=== PATIENT | male | born 1980 | race African-American/Black ===

== ENCOUNTER 2016-08-17 11:37 | Emergency (ER) | payer OTHER ==
[~2016-08-17] VITALS: Ht 180.3 cm; Wt 81.8 kg
[~2016-08-17 11:37] MED LIST: DOXYCYCLINE HY100 M3 PO
[2016-08-17 13:56] LABS: ADD MIUA? YES; BILIRUBIN NEGATIVE; BLOOD NEGATIVE; GLUCOSE (STRIP) NEGATIVE; KETONES NEGATIVE; LEUKOCYTES SMALL; NITRITE NEGATIVE; PH, URINE 7.5 (5-8); PROTEIN (STRIP) 30; SPECIFIC GRAVITY 1.031 (1.000-1.030); UROBILINOGEN 0.2 MG/DL (0.2-1.0)
[2016-08-17 13:57] LABS: COLOR DK YELLOW ((YELLOW))
[2016-08-17 14:23] VITALS: BP 164/114
[2016-08-17 14:44] LABS: BACTERIA NONE SEEN /HPF; CASTS NONE SEEN /LPF; CRYSTALS NONE SEEN; EPITHELIAL CELLS RARE /HPF; MUCUS NONE SEEN /LPF; RED BLOOD CELLS NONE SEEN /HPF (0-5); UCUL ADDED? NO; WHITE BLOOD CELLS 0-5 /HPF (0-5)
[2016-08-19 12:44] LABS: CHLAMYDIA TRACHOMATIS NEGATIVE; NEISSERIA GONORRHOEAE NEGATIVE
== END 2016-08-17 14:24 | disposition home or self-care (01) ==
LOC: EME 11:37 → RME 11:37
PROVIDERS: Physician Assistant
DX: R36.9 Urethral discharge, unspecified (principal); I10 Essential (primary) hypertension; Z91.14 Patient's other noncompliance with medication regimen; F17.200 Nicotine dependence, unspecified, uncomplicated
CPT/HCPCS: 81003; 87491; 87591; 99281; 99284; J0696

== ENCOUNTER 2016-08-26 22:12 | Inpatient (IN) | payer OTHER ==
[~2016-08-26] VITALS: Ht 180.3 cm; Wt 84.3 kg
[2016-08-26 22:29] LABS: EOSINOPHIL (%) 1.9 % (0-5); EOSINOPHIL COUNT 0.1 K/uL (0-0.3); HEMATOCRIT 45.2 % (38.0-50.0); IMMATURE GRANULOCYTE (%) 0.2 % (0.0-0.7); IMMATURE GRANULOCYTE COUNT 0.1 K/uL; MCH 27.9 PG (29.0-34.0); MCHC 33.6 G/DL (30.0-36.0); MCV 82.9 FL (86-99); MEAN PLAT.VOLUME 10.5 uM^3 (9.0-12.4); MONOCYTE (%) 8.4 % (3-12); MONOCYTE COUNT 0.5 K/uL (0-0.8); NEUTROPHIL (%) 41.9 % (45-76); NEUTROPHIL COUNT 2.6 K/uL (1.8-6.4); PLATELET COUNT 193 K/uL (156-360); RBC DIS.WIDTH-SD 36.1 % (39-53); RED BLOOD COUNT 5.45 M/uL (4.00-5.50); WHITE BLOOD COUNT 6.3 K/uL (4.1-10.2)
[2016-08-26 22:48] LABS: AMYLASE 121 IU/L (1-118); CHLORIDE 106 mEq/L (99-109); SODIUM 142 mEq/L (136-147)
[2016-08-26 22:50] LABS: GLUCOSE 133 mg/dL (70-99)
[2016-08-26 22:51] LABS: ANION GAP 19 MEQ/L (2-14)
[2016-08-26 22:53] LABS: GFR ESTIMATE (CALCULATED) > 59 mL/min/; SERUM ETHYL ALCOHOL < 10 mg/dL
[2016-08-26 22:54] LABS: UREA NITROGEN (BUN) 22 mg/dL (9-23)
[2016-08-26 22:56] LABS: LIPASE 17 U/L (1.0-51.0)
[2016-08-27] VITALS (26 sets, daily range): BP systolic 121–205; BP diastolic 78–133
[2016-08-27 00:37] LABS: TOTAL BILIRUBIN 0.6 mg/dL (0.0-1.0)
[2016-08-27 00:38] LABS: ALKALINE PHOSPHATASE 78 IU/L (3-129)
[2016-08-27 00:41] LABS: DIRECT BILIRUBIN 0.2 mg/dL (0.0-0.3)
[2016-08-27 01:50] LABS: HEMATOCRIT 45.1 % (38.0-50.0); MCV 83.2 FL (86-99)
[2016-08-27 02:22] LABS: CHLORIDE 112 mEq/L (99-109); POTASSIUM 5.8 mEq/L (3.7-5.4); SODIUM 143 mEq/L (136-147)
[2016-08-27 02:25] LABS: ANION GAP 15 MEQ/L (2-14)
[2016-08-27 02:28] LABS: GFR ESTIMATE (CALCULATED) > 59 mL/min/
[2016-08-27 02:29] LABS: UREA NITROGEN (BUN) 21 mg/dL (9-23)
[2016-08-27 02:30] LABS: GLUCOSE 86 mg/dL (70-99)
[2016-08-27 04:00] LABS: BASE EXCESS -3.4 mEq/L (-3 to +3); BICARBONATE 21.4 mEq/L (22-26); CARBOXY HGB 2.7 % (0-5); COMMENTS - BLOOD GASES C+; DEVICE 840; FI02 50 %; MECHANICAL RATE 12 resp/min; METHEMOGLOBIN 1.1 % (0-1.5); MODE AC; PCO2 37 mm Hg (35-45); PEEP 5 CM/H20; PO2 229 mm Hg (80-100); SITE LR; TIDAL VOLUME 600 ML; TOTAL RESP RATE 12 resp/min; pH 7.37 (7.35-7.45)
[2016-08-27 04:06] LABS: METH RESISTANT S AUREUS PCR NEGATIVE (NEGATIVE)
[2016-08-27 04:16] LABS: PROBE CHECK PASS; SPECIMEN PROCESSING CONTROL PASS
[2016-08-27 07:08] LABS: ADD MIUA? YES; BILIRUBIN NEGATIVE; BLOOD LARGE; COLOR YELLOW ((YELLOW)); GLUCOSE (STRIP) NEGATIVE; KETONES NEGATIVE; LEUKOCYTES NEGATIVE; NITRITE NEGATIVE; PROTEIN (STRIP) NEGATIVE; SPECIFIC GRAVITY 1.013 (1.000-1.030); UROBILINOGEN 0.2 MG/DL (0.2-1.0)
[2016-08-27 07:12] LABS: AMPHETAMINE NEGATIVE (500 ng/mL); BARBITURATES NEGATIVE (200 ng/mL); BENZODIAZEPINES NEGATIVE (150 ng/mL); COCAINE PRESUMPTIVE POSITIVE (150 ng/mL); INTERNAL CONTROLS VALID? YES; METHADONE NEGATIVE (200 ng/mL); METHAMPHETAMINE NEGATIVE (500 ng/mL); OPIATES (MORPHINE) PRESUMPTIVE POSITIVE (100 ng/mL); OXYCODONE NEGATIVE (100 ng/mL); PHENCYCLIDINE NEGATIVE (25 ng/mL); PROPOXYPHENE NEGATIVE (300 ng/mL); THC CANNABINOIDS NEGATIVE (50 ng/mL); TRICYCLIC ANTIDEPRESSANTS NEGATIVE (300 ng/mL)
[2016-08-27 07:13] LABS: ADD MEDTOX COMMENT Y
[2016-08-27 07:16] LABS: BACTERIA NONE SEEN /HPF; EPITHELIAL CELLS NONE SEEN /HPF; MUCUS TRACE /LPF; RED BLOOD CELLS TNTC /HPF (0-5); UCUL ADDED? NO; WHITE BLOOD CELLS 0-5 /HPF (0-5)
[2016-08-27 07:32] LABS: OPIATES QUANTITATIVE VALUE 0 NG/ML
[2016-08-27 14:18] LABS: EOSINOPHIL (%) 0 % (0-5); HEMATOCRIT 45.7 % (38.0-50.0); IMMATURE GRANULOCYTE (%) 0.2 % (0.0-0.7); LYMPHOCYTE COUNT 0.8 K/uL (1.0-2.8); MCH 27.6 PG (29.0-34.0); MCHC 33.3 G/DL (30.0-36.0); MCV 83.1 FL (86-99); MEAN PLAT.VOLUME 11.4 uM^3 (9.0-12.4); MONOCYTE (%) 7.2 % (3-12); MONOCYTE COUNT 0.9 K/uL (0-0.8); NEUTROPHIL (%) 85.8 % (45-76); NEUTROPHIL COUNT 10.2 K/uL (1.8-6.4); RBC DIS.WIDTH-CV 13.2 % (11.8-14.6); RBC DIS.WIDTH-SD 39.7 % (39-53)
[2016-08-27 14:24] LABS: PLATELET COUNT 125 K/uL (156-360); WHITE BLOOD COUNT 11.9 K/uL (4.1-10.2)
[2016-08-27 14:57] LABS: PLAT.SUFFICIENCY DECREASED; USER ID TLW
[2016-08-27 15:15] LABS: ANION GAP 9 MEQ/L (2-14); CHLORIDE 107 MEQ/L (99-109); GFR ESTIMATE (CALCULATED) > 59 mL/min/; MAGNESIUM 1.7 mg/dl (1.3-2.7); SAMPLE HEMOLYSIS CHECK 0; SAMPLE ICTERIC CHECK 0; SAMPLE LIPEMIA CHECK 0; SODIUM 138 MEQ/L (136-147); UREA NITROGEN (BUN) 18 mg/dL (9-23)
[2016-08-27 15:17] LABS: GLUCOSE 110 mg/dL (70-99); POTASSIUM 4.3 MEQ/L (3.7-5.4)
[2016-08-27 15:31] LABS: BASE EXCESS -1.4 mEq/L (-3 to +3); BICARBONATE 24.8 mEq/L (22-26); CARBOXY HGB 2.7 % (0-5); COMMENTS - BLOOD GASES A+C+; DEVICE 840; FI02 30 %; METHEMOGLOBIN 1.4 % (0-1.5); MODE SPONT (TC); PCO2 46 mm Hg (35-45); PO2 108 mm Hg (80-100); SITE LR; TOTAL RESP RATE 18 resp/min; pH 7.34 (7.35-7.45)
[2016-08-27 15:32] LABS: PEEP 5 CM/H20
[2016-08-27] MEDS ORDERED: PRINIVIL20 MG PO (16:01)
[2016-08-27] MEDS ORDERED: HYDROCHLOROTHIA25 MG PO (16:02)
[2016-08-27] MEDS ORDERED: LO-DOSE ASPIRIN81 M2 PO (16:03)
[2016-08-28] VITALS (24 sets, daily range): BP systolic 131–172; BP diastolic 67–107
[2016-08-28 06:12] LABS: ANION GAP 9 MEQ/L (2-14); CHLORIDE 105 MEQ/L (99-109); GFR ESTIMATE (CALCULATED) 55 mL/min/; GLUCOSE 91 mg/dL (70-99); MAGNESIUM 1.9 mg/dl (1.3-2.7); POTASSIUM 4.3 MEQ/L (3.7-5.4); SAMPLE HEMOLYSIS CHECK 0; SAMPLE ICTERIC CHECK 0; SAMPLE LIPEMIA CHECK 0; SODIUM 139 MEQ/L (136-147); UREA NITROGEN (BUN) 16 mg/dL (9-23)
[2016-08-28 06:42] LABS: EOSINOPHIL (%) 0.2 % (0-5); HEMATOCRIT 39.3 % (38.0-50.0); IMMATURE GRANULOCYTE (%) 0.2 % (0.0-0.7); LYMPHOCYTE COUNT 0.9 K/uL (1.0-2.8); MCH 27.4 PG (29.0-34.0); MCHC 32.6 G/DL (30.0-36.0); MEAN PLAT.VOLUME 10.8 uM^3 (9.0-12.4); MONOCYTE COUNT 0.9 K/uL (0-0.8); NEUTROPHIL COUNT 9.6 K/uL (1.8-6.4); PLATELET COUNT 108 K/uL (156-360); RBC DIS.WIDTH-CV 13.1 % (11.8-14.6); RBC DIS.WIDTH-SD 39.3 % (39-53); RED BLOOD COUNT 4.68 M/uL (4.00-5.50); WHITE BLOOD COUNT 11.4 K/uL (4.1-10.2)
[2016-08-28 15:04] LABS: ADD MIUA? YES; BILIRUBIN NEGATIVE; BLOOD LARGE; COLOR YELLOW ((YELLOW)); GLUCOSE (STRIP) NEGATIVE; KETONES 20; LEUKOCYTES NEGATIVE; NITRITE NEGATIVE; PROTEIN (STRIP) 30; SPECIFIC GRAVITY 1.017 (1.000-1.030); UROBILINOGEN 0.2 MG/DL (0.2-1.0)
[2016-08-28 15:17] LABS: BACTERIA RARE /HPF; EPITHELIAL CELLS NONE SEEN /HPF; MUCUS TRACE /LPF; RED BLOOD CELLS TNTC /HPF (0-5); UCUL ADDED? NO; WHITE BLOOD CELLS 0-5 /HPF (0-5)
[2016-08-28 16:50] LABS: UR CREATININE CONCENTRATION 183.1 MG/DL
[2016-08-29] VITALS (12 sets, daily range): BP systolic 143–193; BP diastolic 70–112
[2016-08-29 06:38] LABS: EOSINOPHIL (%) 0.3 % (0-5); HEMATOCRIT 38.8 % (38.0-50.0); IMMATURE GRANULOCYTE (%) 0.3 % (0.0-0.7); LYMPHOCYTE COUNT 1.2 K/uL (1.0-2.8); MCH 28.3 PG (29.0-34.0); MCHC 33.2 G/DL (30.0-36.0); MCV 85.1 FL (86-99); MEAN PLAT.VOLUME 10.9 uM^3 (9.0-12.4); MONOCYTE COUNT 1.3 K/uL (0-0.8); NEUTROPHIL (%) 78.3 % (45-76); NEUTROPHIL COUNT 9.2 K/uL (1.8-6.4); PLATELET COUNT 106 K/uL (156-360); RBC DIS.WIDTH-CV 12.9 % (11.8-14.6); RBC DIS.WIDTH-SD 39.5 % (39-53); RED BLOOD COUNT 4.56 M/uL (4.00-5.50); WHITE BLOOD COUNT 11.7 K/uL (4.1-10.2)
[2016-08-29 06:50] LABS: ANION GAP 10 MEQ/L (2-14); CHLORIDE 102 MEQ/L (99-109); GFR ESTIMATE (CALCULATED) > 59 mL/min/; GLUCOSE 89 mg/dL (70-99); MAGNESIUM 1.8 mg/dl (1.3-2.7); POTASSIUM 4.3 MEQ/L (3.7-5.4); SAMPLE HEMOLYSIS CHECK 0; SAMPLE ICTERIC CHECK 0; SAMPLE LIPEMIA CHECK 0; SODIUM 137 MEQ/L (136-147); UREA NITROGEN (BUN) 17 mg/dL (9-23)
[2016-08-30] VITALS (18 sets, daily range): BP systolic 135–188; BP diastolic 64–100
[2016-08-30 06:15] LABS: EOSINOPHIL (%) 1.9 % (0-5); EOSINOPHIL COUNT 0.2 K/uL (0-0.3); HEMATOCRIT 38.7 % (38.0-50.0); IMMATURE GRANULOCYTE (%) 0.2 % (0.0-0.7); MCH 27.4 PG (29.0-34.0); MCHC 32.8 G/DL (30.0-36.0); MCV 83.6 FL (86-99); MONOCYTE (%) 9.3 % (3-12); NEUTROPHIL (%) 79.3 % (45-76); NEUTROPHIL COUNT 8.7 K/uL (1.8-6.4); RBC DIS.WIDTH-CV 12.4 % (11.8-14.6); RBC DIS.WIDTH-SD 37.6 % (39-53); RED BLOOD COUNT 4.63 M/uL (4.00-5.50)
[2016-08-30 06:33] LABS: MEAN PLAT.VOLUME 10.6 uM^3 (9.0-12.4)
[2016-08-30 06:34] LABS: PLATELET COUNT 148 K/uL (156-360)
[2016-08-30 06:42] LABS: ANION GAP 12 MEQ/L (2-14); CHLORIDE 98 MEQ/L (99-109); GFR ESTIMATE (CALCULATED) > 59 mL/min/; GLUCOSE 82 mg/dL (70-99); MAGNESIUM 1.7 mg/dl (1.3-2.7); POTASSIUM 3.8 MEQ/L (3.7-5.4); SAMPLE HEMOLYSIS CHECK 0; SAMPLE ICTERIC CHECK 0; SAMPLE LIPEMIA CHECK 0; SODIUM 136 MEQ/L (136-147); UREA NITROGEN (BUN) 17 mg/dL (9-23)
[2016-08-31] VITALS (9 sets, daily range): BP systolic 135–172; BP diastolic 74–94
[2016-08-31 06:00] LABS: ANION GAP 7 MEQ/L (2-14); CHLORIDE 100 MEQ/L (99-109); GFR ESTIMATE (CALCULATED) > 59 mL/min/; GLUCOSE 97 mg/dL (70-99); MAGNESIUM 1.7 mg/dl (1.3-2.7); POTASSIUM 3.5 MEQ/L (3.7-5.4); SAMPLE HEMOLYSIS CHECK 0; SAMPLE ICTERIC CHECK 0; SAMPLE LIPEMIA CHECK 0; SODIUM 136 MEQ/L (136-147); UREA NITROGEN (BUN) 16 mg/dL (9-23)
[2016-08-31 06:12] LABS: EOSINOPHIL (%) 3.9 % (0-5); EOSINOPHIL COUNT 0.3 K/uL (0-0.3); HEMATOCRIT 32.7 % (38.0-50.0); IMMATURE GRANULOCYTE (%) 0.2 % (0.0-0.7); MCH 27.1 PG (29.0-34.0); MCHC 32.7 G/DL (30.0-36.0); MCV 82.8 FL (86-99); MEAN PLAT.VOLUME 9.8 uM^3 (9.0-12.4); MONOCYTE (%) 11.1 % (3-12); MONOCYTE COUNT 0.9 K/uL (0-0.8); NEUTROPHIL (%) 72.6 % (45-76); NEUTROPHIL COUNT 5.8 K/uL (1.8-6.4); PLATELET COUNT 146 K/uL (156-360); RBC DIS.WIDTH-CV 12.1 % (11.8-14.6); RBC DIS.WIDTH-SD 36.9 % (39-53); RED BLOOD COUNT 3.95 M/uL (4.00-5.50)
[2016-09-01 03:51] VITALS: BP 164/94
[2016-09-01 05:27] LABS: EOSINOPHIL (%) 3.1 % (0-5); EOSINOPHIL COUNT 0.2 K/uL (0-0.3); HEMATOCRIT 31.9 % (38.0-50.0); IMMATURE GRANULOCYTE (%) 0.3 % (0.0-0.7); LYMPHOCYTE COUNT 0.8 K/uL (1.0-2.8); MCH 28.5 PG (29.0-34.0); MCHC 34.5 G/DL (30.0-36.0); MCV 82.6 FL (86-99); MEAN PLAT.VOLUME 10.1 uM^3 (9.0-12.4); MONOCYTE (%) 15.7 % (3-12); MONOCYTE COUNT 1.1 K/uL (0-0.8); PLATELET COUNT 167 K/uL (156-360); RBC DIS.WIDTH-CV 12.1 % (11.8-14.6); RBC DIS.WIDTH-SD 36.4 % (39-53); RED BLOOD COUNT 3.86 M/uL (4.00-5.50); WHITE BLOOD COUNT 7.2 K/uL (4.1-10.2)
[2016-09-01 06:18] LABS: ANION GAP 8 MEQ/L (2-14); CHLORIDE 102 MEQ/L (99-109); GFR ESTIMATE (CALCULATED) > 59 mL/min/; GLUCOSE 118 mg/dL (70-99); MAGNESIUM 1.8 mg/dl (1.3-2.7); POTASSIUM 3.4 MEQ/L (3.7-5.4); SAMPLE HEMOLYSIS CHECK 0; SAMPLE ICTERIC CHECK 0; SAMPLE LIPEMIA CHECK 0; SODIUM 137 MEQ/L (136-147); UREA NITROGEN (BUN) 13 mg/dL (9-23)
[2016-09-01 07:59] VITALS: BP 178/82
[2016-09-01] MEDS ORDERED: OXYCODONE-ACET1 EACH PO (10:07)
[2016-09-01] MEDS ORDERED: APRESOLINE25 MG PO (10:30)
[2016-09-01] MEDS ORDERED: LISINOPRIL5 MG PO (10:30)
[2016-09-01] MEDS ORDERED: IMDUR120 MG PO (10:30)
[2016-09-01 12:23] VITALS: BP 160/82
== END 2016-09-01 15:13 | disposition home or self-care (01) | DRG 957 ==
LOC: EDBD 22:12 → TRA 22:12 → SDC 22:34 → TRA 22:34 → 4WEST 08-27 00:50 → 2SOUTH 08-27 00:50 → 4WEST 08-27 02:47 → 3EAST 08-31 13:31
PROVIDERS: Anesthesiology; Emergency Medicine; Internal Medicine Critical Care Medicine; Internal Medicine Nephrology; Surgery
DX: S37.031A Laceration of right kidney, unspecified degree, initial encounter (principal); S31.63 Puncture wound without foreign body of abdominal wall with penetration into peritoneal cavity; J96.01 Acute respiratory failure with hypoxia; T79.4XXA Traumatic shock, initial encounter; N17.0 Acute kidney failure with tubular necrosis; E87.2 Acidosis; E87.0 Hyperosmolality and hypernatremia; S36.123A Laceration of gallbladder, initial encounter; S36.113A Laceration of liver, unspecified degree, initial encounter; X94.0XXA Assault by shotgun, initial encounter; F14.90 Cocaine use, unspecified, uncomplicated; F11.90 Opioid use, unspecified, uncomplicated; E87.8 Other disorders of electrolyte and fluid balance, not elsewhere classified; F17.210 Nicotine dependence, cigarettes, uncomplicated; I10 Essential (primary) hypertension; Z91.128 Patient's intentional underdosing of medication regimen for other reason; Y92.9 Unspecified place or not applicable
CPT/HCPCS: 36600; 71010; 80048; 80048 91; 80076; 81003; 82150; 82570; 82803; 83690; 83735; 84100; 84156; 84300; 84999; 85014; 85018; 85025; 86850; 86900; 86901; 86920; 87070; 87205; 87641; 88302; 88305; 88307; 90832; 94002; 94799; 97530 GO; 97530 GP; 99202; 99281; 99285; G0480; J0330; J0360; J1170; J1644; J2250; J2704; J3010; J3475; J3480; J7050; J7120; P9016; P9017; S0028

== ENCOUNTER → 2016-09-09 | Outpatient (CLI) | payer OTHER ==
[~2016-09-09] MED LIST changes: +APRESOLINE25 MG PO; +HYDROCHLOROTHIA25 MG PO; +IMDUR120 MG PO; +LISINOPRIL5 MG PO; +LO-DOSE ASPIRIN81 M2 PO; +MAALOX MAXIMUM355 ML PO; +OXYCODONE-ACET1 EACH PO; +PRINIVIL20 MG PO
== END | disposition home or self-care (01) ==
LOC: AMB 12:30
DX: Z48.89 Encounter for other specified surgical aftercare (principal); W34.00XD Accidental discharge from unspecified firearms or gun, subsequent encounter
CPT/HCPCS: 99211

== ENCOUNTER 2016-09-21 23:08 | Emergency (ER) | payer OTHER ==
[~2016-09-21] VITALS: Ht 180.3 cm; Wt 79.5 kg
[~2016-09-21 23:08] MED LIST changes: -MAALOX MAXIMUM355 ML PO
[2016-09-21 23:54] LABS: EOSINOPHIL (%) 0.9 % (0-5); EOSINOPHIL COUNT 0.1 K/uL (0-0.3); HEMATOCRIT 40.1 % (38.0-50.0); IMMATURE GRANULOCYTE (%) 0.3 % (0.0-0.7); INSTRUMENT ABS NEUTROPHIL CT 4.6 K/uL; LYMPHOCYTE COUNT 1.6 K/uL (1.0-2.8); MCH 27.7 PG (29.0-34.0); MCHC 32.4 G/DL (30.0-36.0); MCV 85.3 FL (86-99); MONOCYTE (%) 6.5 % (3-12); MONOCYTE COUNT 0.4 K/uL (0-0.8); NEUTROPHIL (%) 68.4 % (45-76); NEUTROPHIL COUNT 4.6 K/uL (1.8-6.4); RBC DIS.WIDTH-SD 37.7 % (39-53); WHITE BLOOD COUNT 6.8 K/uL (4.1-10.2)
[2016-09-22 00:02] LABS: CHLORIDE 103 mEq/L (99-109); POTASSIUM 3.6 mEq/L (3.7-5.4); SODIUM 137 mEq/L (136-147)
[2016-09-22 00:04] LABS: GLUCOSE 102 mg/dL (70-99)
[2016-09-22 00:05] LABS: ANION GAP 9 MEQ/L (2-14)
[2016-09-22 00:06] LABS: TOTAL BILIRUBIN 0.4 mg/dL (0.0-1.0)
[2016-09-22 00:07] LABS: ALKALINE PHOSPHATASE 105 IU/L (3-129); GFR ESTIMATE (CALCULATED) 52 mL/min/
[2016-09-22 00:08] LABS: PLATELET COUNT 263 K/uL (156-360)
[2016-09-22 00:09] LABS: UREA NITROGEN (BUN) 20 mg/dL (9-23)
[2016-09-22 00:11] LABS: LIPASE 56 U/L (1.0-51.0)
[2016-09-22 00:14] LABS: TROP-I INTERPRETATION NEGATIVE; TROPONIN-I < 0.01 ng/mL (0.0-0.30)
[2016-09-22] MEDS ORDERED: MAALOX MAXIMUM355 ML PO (03:48)
[2016-09-22 04:02] VITALS: BP 126/84
== END 2016-09-22 04:06 | disposition home or self-care (01) ==
LOC: EME 23:08
PROVIDERS: Emergency Medicine
DX: R10.10 Upper abdominal pain, unspecified (principal); Z98.890 Other specified postprocedural states; S31.609D Unspecified open wound of abdominal wall, unspecified quadrant with penetration into peritoneal cavity, subsequent encounter; W34.00XD Accidental discharge from unspecified firearms or gun, subsequent encounter; I12.9 Hypertensive chronic kidney disease with stage 1 through stage 4 chronic kidney disease, or unspecified chronic kidney disease; N18.9 Chronic kidney disease, unspecified; K59.00 Constipation, unspecified; F17.200 Nicotine dependence, unspecified, uncomplicated
CPT/HCPCS: 71020; 74020; 74176; 80053; 83690; 84484; 85025; 93005; 99281; 99285; J2405; J7030